=== PATIENT | male | born 1970 | race Two or more races ===

== ENCOUNTER 2016-05-15 11:10 | Emergency (ER) | payer BC, OTHER ==
[~2016-05-15] VITALS: Ht 172.7 cm; Wt 99.8 kg
[2016-05-15 11:45] VITALS: BP 137/83
[2016-05-15] MEDS ORDERED: AMOX1TAB61 PO (12:07)
--- NOTE | 2016-05-15 12:07 | PHYS DOC ---
Past Medical History Past Medical History: Bronchitis, High Cholesterol, Heart Disease, Hypertension Additional Past Medical Histor: internal hemorrhoids, chronic bronchitis Past Surgical History: Angioplasty Additional Past Surgical Histo: 1 Stent. Alcohol Use: Occasionally Drug Use: None Adult General Chief Complaint Chief Complaint: Congestion HPI HPI Patient is a 45 year old female presents emergency department stating that he was 7 some pain and discomfort last night no cyanosis. He states that he normally takes hydrocodone for back pain and discomfort although he has been out of them for 2 weeks. He states that he takes one of his friend's oxycodone for pain and discomfort which really didn't help with his facial pain and discomfort. Patient states that when he woke up this morning he had had some swelling to the left maxillary sinus areas. He states that he is also having some dental pain along the left upper dental area patient denies any fever, chills or any nausea vomiting. Patient states that he has a history of boils in which she's been taken some Keflex for. Patient denies any other symptoms at this time. Review of Systems Review of Systems Constitutional: Denies fever or chills [] Eyes: Denies change in visual acuity, redness, or eye pain [] HENT: Denies nasal congestion or sore throat. C/o left maxillary sinus pressure and swelling Respiratory: Denies cough or shortness of breath [] Cardiovascular: No additional information not addressed in HPI [] GI: Denies abdominal pain, nausea, vomiting, bloody stools or diarrhea [] : Denies dysuria or hematuria [] Musculoskeletal: Denies back pain or joint pain [] Integument: Denies rash or skin lesions [] Neurologic: Denies headache, focal weakness or sensory changes [] Allergies Allergies Allergies Coded Allergies Type Severity Reaction Last Updated Verified No Known Drug Allergies 09/09/13 No Physical Exam Physical Exam Constitutional: Well developed, well nourished, no acute distress, non-toxic appearance. [] HENT: Normocephalic, atraumatic, bilateral external ears normal, oropharynx moist, no oral exudates, nose normal. Bilateral tympanic membranes appear to be normal. Throat without erythematous or exudate. Patient was noted to have left frontal and maxillary sinus tenderness. Patient does have swelling noted over the left maxillary sinuses. Eyes: PERRLA, EOMI, conjunctiva normal, no discharge. [] Neck: Normal range of motion, no tenderness, supple, no stridor. [] Cardiovascular:Heart rate regular rhythm, no murmur [] Lungs & Thorax: Bilateral breath sounds clear to auscultation [] Skin: Warm, dry, no erythema, no rash. [] Back: No tenderness Extremities: No tenderness, no cyanosis, no clubbing, ROM intact, no edema. [] Neurologic: Alert and oriented X 3, normal motor function, normal sensory function, no focal deficits noted. [] Psychologic: Affect normal, judgement normal, mood normal. [] EKG EKG [] Radiology/Procedures Radiology/Procedures [] Course & Med Decision Making Course & Med Decision Making Pertinent Labs and Imaging studies reviewed. (See chart for details) Patient will be placed on Augmentin. Recommended patient to use Sudafed to help with the sinus pressure. Also recommended Mucinex DM to help relieve the congestion. Patient was requesting hydrocodone 8-10 tablets. Explained to patient that sinus infections does not require narcotics. Patient will be discharged home in stable condition with recommendations as above. Since symptoms to return back to emergency department as been provided. Patient agrees with discharge instructions treatment regimens and follow-up recommendations. [] Dragon Disclaimer Dragon Disclaimer This electronic medical record was generated, in whole or in part, using a voice recognition dictation system. Departure Departure Impression: Primary Impression: Sinusitis Disposition: 01 HOME, SELF-CARE Condition: STABLE Referrals: ZULEYMA WILLIAM MD (PCP) Patient Instructions: Sinusitis, [id number] Additional Instructions: Activity as tolerated. Medications as prescribed. You may use Sudafed [id number] to help with sinus pressure. You may also use Mucinex DM [id number] to help relieve the drainage and discharge. Encourage plenty of fluids. Tylenol or ibuprofen may also help with pain and discomfort. Follow-up primary care physician in the next week. Return back to emergency department sign symptoms of become worse. Scripts Amoxicillin/Potassium Clav (Augmentin 875-125 Tablet)1 Each Tablet1 Tab PO BID # 20 TAB Prov:MELANY MIKE NP 05/15/16 MELANY MIKE NP May 15, 2016 12:07
[2016-05-16] MEDS ORDERED: HYDR-971 PO (01:54)
== END 2016-05-15 12:24 | disposition home or self-care (01) ==
LOC: ER 11:10
DX: J32.9 Chronic sinusitis, unspecified (principal); E78.00 Pure hypercholesterolemia, unspecified; I10 Essential (primary) hypertension; Z98.61 Coronary angioplasty status
CPT/HCPCS: 99283

== ENCOUNTER 2016-05-16 00:50 | Emergency (ER) | payer BC ==
[~2016-05-16] VITALS: Ht 172.7 cm; Wt 99.8 kg
[~2016-05-16 00:50] MED LIST: AMOX1TAB61 PO
[2016-05-16 01:00] VITALS: BP 151/94
[2016-05-16] MEDS ORDERED: HYDR-971 PO (01:54)
--- NOTE | 2016-05-16 01:54 | PHYS DOC ---
Past Medical History Past Medical History: Bronchitis, High Cholesterol, Heart Disease, Hypertension , [place] Additional Past Medical Histor: internal hemorrhoids, chronic bronchitis, [place] Past Surgical History: Angioplasty Additional Past Surgical Histo: 1 Stent. Alcohol Use: None Drug Use: None Adult General Chief Complaint Chief Complaint: DENTAL PROBLEM [facility] HPI Patient is a 45 year old male who presents with complaint of left-sided facial pain area patient states that he has had for the past 2 days. Patient states that he was seen earlier today in the emergency department and was diagnosed with a sinusitis. The patient states that he started having worsening pain and swelling along the left side of his face. Patient denies any associated fevers. Patient states that he was prescribed Augmentin at his previous visit and was told to take cough medication and decongestants to help with his symptoms. Patient states that despite treatment his pain has worsened. Patient rates his pain currently is 10 out of 10 states that the long left side of his face. Patient states it radiates towards the back of his head. Patient denies any loss of vision, difficulty with speech or swallowing, or any unilateral deficits. Review of Systems Review of Systems Constitutional: Denies fever or chills [] Eyes: Denies change in visual acuity, redness, or eye pain [] HENT: Facial pain [] Respiratory: Denies cough or shortness of breath [] Cardiovascular: No additional information not addressed in HPI [] GI: Denies abdominal pain, nausea, vomiting, bloody stools or diarrhea [] : Denies dysuria or hematuria [] Musculoskeletal: Denies back pain or joint pain [] Integument: Denies rash or skin lesions [] Neurologic: Denies headache, focal weakness or sensory changes [] Allergies Allergies Allergies Coded Allergies Type Severity Reaction Last Updated Verified No Known Drug Allergies 09/09/13 No Physical Exam Physical Exam Constitutional: Alert, afebrile, appears in moderate to severe discomfort. [] HENT: Normocephalic, atraumatic, bilateral external ears normal, left maxillary sinus tenderness to palpation, oropharynx moist, no gingival erythema or fluctuance, tenderness to palpation over tooth #11, no oral exudates, nose normal. [] Eyes: PERRLA, EOMI, conjunctiva normal, no discharge. [] Neck: Normal range of motion, no tenderness, supple, no stridor. [] Cardiovascular:Heart rate regular rhythm, no murmur [] Lungs & Thorax: Bilateral breath sounds clear to auscultation [] Abdomen: Bowel sounds normal, soft, no tenderness, no masses, no pulsatile masses. [] Skin: Warm, dry, no erythema, no rash. [] Back: No tenderness, no CVA tenderness. [] Extremities: No tenderness, no cyanosis, no clubbing, ROM intact, no edema. [] Neurologic: Alert and oriented X 3, normal motor function, normal sensory function, no focal deficits noted. [] Current Patient Data Vital Signs Vital Signs Date Time Temp Pulse Resp B/P Pulse Ox O2 Delivery O2 Flow Rate FiO2 05/16/16 01:00 98.2 90 20 97 Room Air 98.2 EKG EKG Not performed [] Radiology/Procedures Radiology/Procedures Not performed [] Course & Med Decision Making Course & Med Decision Making Pertinent Labs and Imaging studies reviewed. (See chart for details) The patient is on appropriate medication for treatment of sinusitis, however patient does not appear to be adequately pain controlled at this time. The patient was written for prescription for [place] to help with symptoms. Advised to continue on Augmentin as prescribed at his previous visit. Advised follow-up in 2-3 days a primary doctor and return to the emergency department for any worsening symptoms. Patient voiced understanding and in agreement with treatment plan. Dragon Disclaimer Dragon Disclaimer This electronic medical record was generated, in whole or in part, using a voice recognition dictation system. Departure Departure Impression: Primary Impression: Sinusitis Disposition: 01 HOME, SELF-CARE Condition: STABLE Referrals: ZULEYMA WILLIAM MD (PCP) Patient Instructions: Sinusitis Additional Instructions: Continue on the antibiotic that was prescribed to you for your sinus infection. Follow-up with your primary doctor in 2 days. Return to the emergency department for any worsening symptoms. Scripts Hydrocodone/Apap 5-325 ([place] 5-325 Tablet)1 Each Tablet1-2 Tab PO Q4-6HRS PRN PAIN #20 TAB Prov:JULIET ALEMAN MD 05/16/16 Problem Qualifiers Primary Impression: Sinusitis Sinusitis location: maxillary Chronicity: acute Recurrence: not specified as recurrent Qualified Code: J01.00 - Acute maxillary sinusitis, unspecified JULIET ALEMAN MD May 16, 2016 01:54
== END 2016-05-16 02:10 | disposition home or self-care (01) ==
LOC: ER 00:50
DX: J32.9 Chronic sinusitis, unspecified (principal); J42 Unspecified chronic bronchitis; I11.9 Hypertensive heart disease without heart failure; E78.00 Pure hypercholesterolemia, unspecified; I25.2 Old myocardial infarction; Z95.5 Presence of coronary angioplasty implant and graft
CPT/HCPCS: 99283

== ENCOUNTER 2016-10-27 07:26 | Emergency (ER) | payer BC ==
[~2016-10-27] VITALS: Ht 174 cm; Wt 104.3 kg
[~2016-10-27 07:26] MED LIST changes: +HYDR-971 PO
[2016-10-27] MEDS ORDERED: PIPERACILLIN/TAZOBACTAM 3.375 GM in IV NORMAL SALINE 50ML 50 ML IV ONE (07:45)
[2016-10-27] MEDS ORDERED: MORPHINE SULFATE 10 MG/ML VIAL. IV ONE (07:45)
[2016-10-27] MEDS ORDERED: ASPIRIN ENTERIC COATED 325 MG TABLET.DR. PO ONE (07:45)
[2016-10-27 07:55] LABS: BASO # 0.1 x10^3/uL (0.0-0.2); BASO % 1 % (0-3); EOS % 3 % (0-3); HEMATOCRIT 46.8 % (39.0-53.0); HEMOGLOBIN 15.8 g/dL (13.0-17.5); LYMPH # 2.6 x10^3/uL (1.0-4.8); LYMPH % 29 % (24-48); MEAN CORPUSCULAR HEMOGLOBIN 31 pg (25-35); MEAN CORPUSCULAR HGB CONC 34 g/dL (31-37); MEAN CORPUSCULAR VOLUME 91 fL (79-100); MONO % 9 % (0-9); NEUT % 59 % (31-73); PLATELET COUNT 246 x10^3/uL (140-400); RED BLOOD COUNT 5.13 x10^6/uL (4.30-5.70); RED CELL DISTRIBUTION WIDTH 13.7 % (11.5-14.5)
--- NOTE | 2016-10-27 07:58 | EKG ---
[facility] [address] [place] [address] Test Date: 2016-10-27 Test Time: 07:34:54 Pat Name: JIN guerrero Department: Room: Gender: M Stock Taker: : 1970 Requested By: HUY JONES Order Number: [id number] Reading MD: Ricardo Dolan Measurements Intervals [place] Rate: 80 P: 29 HI: 182 QRS: 62 QRSD: 96 T: 41 QT: 368 QTc: 428 Interpretive Statements SINUS RHYTHM NORMAL ECG RI6.01 Unconfirmed report Compared to ECG 07/24/2013 10:39:06 No significant changes Electronically Signed On 10-27-2016 16:51:41 CDT by Ricardo Dolan
--- NOTE | 2016-10-27 08:13 | RAD ---
Portable chest, 10/27/2016: History: Chest pain Comparison is made to a study from 07/24/2013. The heart size and pulmonary vascularity are normal. The lungs are clear. There is no evidence of pleural fluid. IMPRESSION: No acute cardiopulmonary abnormality is detected.
--- NOTE | 2016-10-27 08:30 | PHYS DOC ---
Past Medical History Past Medical History: Bronchitis, High Cholesterol, Heart Disease, Hypertension , [place] Additional Past Medical Histor: internal hemorrhoids, chronic bronchitis, [place] Past Surgical History: Angioplasty Additional Past Surgical Histo: 1 Stent. Alcohol Use: None Drug Use: None Adult General Chief Complaint Chief Complaint: DENTAL PROBLEM HPI HPI Patient is a 46 year old male presenting to the emergency department for dental pain. As she was checking and he says that he has severe left-sided chest pain that is sharp with no radiation but makes him short of breath and nauseated. Patient says that he had a stent placed in 2009 and had a heart catheter 2 years ago with no abnormality. Patient denies any fevers chills facial swelling but says that he has had range from his teeth. He said that he is unwilling to see a dentist as they wanted to discharge him thousands of dollars to pull his teeth. Review of Systems Review of Systems Constitutional: Denies fever or chills [] Eyes: Denies change in visual acuity, redness, or eye pain [] HENT: Denies nasal congestion or sore throat [] Respiratory: Denies cough. + shortness of breath [] Cardiovascular: + CP GI: Denies abdominal pain, nausea, vomiting, bloody stools or diarrhea [] : Denies dysuria or hematuria [] Musculoskeletal: Denies back pain or joint pain [] Integument: Denies rash or skin lesions [] Neurologic: Denies headache, focal weakness or sensory changes [] Current Medications Current Medications Current Medications Medications (Trade) Dose Ordered Sig/Sav Start Time Stop Time Status Last Admin Dose Admin Aspirin (Ecotrin) 325 mg 1X ONCE 10/27/16 07:45 10/27/16 07:55 DC 10/27/16 08:14 325 MG Ketorolac Tromethamine (Toradol) 30 mg 1X ONCE 10/27/16 09:45 10/27/16 09:46 DC 10/27/16 09:56 30 MG Morphine Sulfate 5 mg 1X ONCE 10/27/16 07:45 10/27/16 07:55 DC 10/27/16 08:15 5 MG Oxycodone/ Acetaminophen (Percocet 5/325) 2 tab 1X ONCE 10/27/16 09:45 10/27/16 09:46 DC 10/27/16 09:55 2 TAB Piperacillin Sod/ Tazobactam Sod 3.375 gm/Sodium Chloride 50 ml @ 100 mls/hr 1X ONCE 10/27/16 07:45 10/27/16 08:14 DC 10/27/16 08:13 100 MLS/HR Allergies Allergies Allergies Coded Allergies Type Severity Reaction Last Updated Verified No Known Drug Allergies 10/27/16 No Physical Exam Physical Exam Constitutional: Well developed, well nourished, no acute distress, non-toxic appearance. [] HENT: Generalized poor dentition with erythema to his left upper gums but there is no periapical abscess or obvious swelling. Eyes: PERRLA, EOMI, conjunctiva normal, no discharge. [] Neck: Normal range of motion, no tenderness, supple, no stridor. [] Cardiovascular:Heart rate regular rhythm, no murmur [] Lungs & Thorax: Bilateral breath sounds clear to auscultation [] Abdomen: Bowel sounds normal, soft, no tenderness, no masses, no pulsatile masses. [] Skin: Warm, dry, no erythema, no rash. [] Back: No tenderness, no CVA tenderness. [] Extremities: No tenderness, no cyanosis, no clubbing, ROM intact, no edema. [] Neurologic: Alert and oriented X 3, normal motor function, normal sensory function, no focal deficits noted. [] Current Patient Data Vital Signs Vital Signs Date Time Temp Pulse Resp B/P (MAP) Pulse Ox O2 Delivery O2 Flow Rate FiO2 10/27/16 09:55 20 98 Room Air 10/27/16 09:53 72 146/86 (106) 10/27/16 07:35 98.6 98.6 Lab Values Laboratory Tests Test 10/27/16 07:45 10/27/16 08:28 White Blood Count 9.0 x10^3/uL (4.0-11.0) Red Blood Count 5.13 x10^6/uL (4.30-5.70) Hemoglobin 15.8 g/dL (13.0-17.5) Hematocrit 46.8 % (39.0-53.0) Mean Corpuscular Volume 91 fL (79-100) Mean Corpuscular Hemoglobin 31 pg (25-35) Mean Corpuscular Hemoglobin Concent 34 g/dL (31-37) Red Cell Distribution Width 13.7 % (11.5-14.5) Platelet Count 246 x10^3/uL (140-400) Neutrophils (%) (Auto) 59 % (31-73) Lymphocytes (%) (Auto) 29 % (24-48) Monocytes (%) (Auto) 9 % (0-9) Eosinophils (%) (Auto) 3 % (0-3) Basophils (%) (Auto) 1 % (0-3) Neutrophils # (Auto) 5.3 x10^3uL (1.8-7.7) Lymphocytes # (Auto) 2.6 x10^3/uL (1.0-4.8) Monocytes # (Auto) 0.8 x10^3/uL (0.0-1.1) Eosinophils # (Auto) 0.3 x10^3/uL (0.0-0.7) Basophils # (Auto) 0.1 x10^3/uL (0.0-0.2) Prothrombin Time 12.6 SEC (11.7-14.0) Prothrombin Time INR 1.0 (0.8-1.1) PTT 29 SEC (24-38) Troponin I Quantitative < 0.017 ng/mL (0.000-0.055) Sodium Level 142 mmol/L (136-145) Potassium Level 3.7 mmol/L (3.5-5.1) Chloride Level 105 mmol/L (98-107) Carbon Dioxide Level 24 mmol/L (21-32) Anion Gap 13 (6-14) Blood Urea Nitrogen 8 mg/dL (8-26) Creatinine 0.9 mg/dL (0.7-1.3) Estimated GFR (Cockcroft-Gault) 90.8 BUN/Creatinine Ratio 9 (6-20) Glucose Level 111 mg/dL (70-99) H Calcium Level 8.7 mg/dL (8.5-10.1) Magnesium Level 2.3 mg/dL (1.8-2.4) Total Bilirubin 0.4 mg/dL (0.2-1.0) Aspartate Amino Transferase (AST) 28 U/L (15-37) Alanine Aminotransferase (ALT) 49 U/L (16-63) Alkaline Phosphatase 86 U/L (46-116) LP-Pku-R-Type Natriuretic Peptide 101 pg/mL (0-124) Total Protein 7.4 g/dL (6.4-8.2) Albumin 3.9 g/dL (3.4-5.0) Albumin/Globulin Ratio 1.1 (1.0-1.7) Lipase 159 U/L (73-393) Laboratory Tests 10/27/16 07:45 Laboratory Tests 10/27/16 08:28 EKG EKG Normal sinus rhythm at 80 bpm with normal axis no obvious ST elevation or depression and normal T waves. Radiology/Procedures Radiology/Procedures Portable chest, 10/27/2016: History: Chest pain Comparison is made to a study from 07/24/2013. The heart size and pulmonary vascularity are normal. The lungs are clear. There is no evidence of pleural fluid. IMPRESSION: No acute cardiopulmonary abnormality is detected. DICTATED and SIGNED BY: WILI QUIJANO MD DATE: 10/27/16809 Course & Med Decision Making Course & Med Decision Making Patient has chest pain that has some typical features and he appeared somewhat ill. HEENT troponin are okay but given his history I strongly recommended admission for further evaluation and treatment. Patient refused admission stating that he needed to go to work today. I told him that I was concerned he may be having a heart attack and he could from this. Shouldn't verbalized understanding and accepted the risks of and disability by leaving against my advice. For his dental pain I strongly advised he needs to see a dentist or oral surgeon as soon as possible as antibiotics and pain medicines will not fix this he has a mechanical issue where he needs to have his teeth pulled. Patient aware and agreeable with plan for discharge and verbalized understanding of the need for short-term follow-up in the strict ER return precautions discussed including worsening pain fevers vomiting or other general concerns. Dragon Disclaimer Dragon Disclaimer This electronic medical record was generated, in whole or in part, using a voice recognition dictation system. Departure Departure Impression: Primary Impression: Chest pain Additional Impression: Infected dental caries Disposition: 01 HOME, SELF-CARE Condition: STABLE Referrals: ZULEYMA WILLIAM MD (PCP) Patient Instructions: Dental Pain Additional Instructions: TAKE 400MG OF IBUPROFEN EVERY 6 HOURS AND THE NORCO FOR BREAKTHROUGH PAIN. FOLLOW WITH THE ORAL SURGEON AND/OR DENTIST [facility]. Scripts Amoxicillin (AMOXICILLIN) 875 Mg Tablet 1 TAB PO BID, #14 TAB Prov: HUY JONES DO 10/27/16 Hydrocodone/Apap 5-325 (NORCO 5-325 TABLET) 1 Each Tablet 1 TAB PO PRN Q6HRS Y for PAIN, #14 TAB 0 Refills Prov: HUY JONES DO 10/27/16 Problem Qualifiers Primary Impression: Chest pain Chest pain type: unspecified Qualified Codes: R07.9 - Chest pain, unspecified HUY JONES DO Oct 27, 2016 08:30
[2016-10-27 08:37] LABS: PROTHROMBIN TIME PATIENT 12.6 SEC (11.7-14.0)
[2016-10-27 08:41] LABS: CALCIUM 8.7 mg/dL (8.5-10.1); CREATININE 0.9 mg/dL (0.7-1.3); GFR 90.8; POTASSIUM 3.7 mmol/L (3.5-5.1)
[2016-10-27 08:47] LABS: ALBUMIN 3.9 g/dL (3.4-5.0); ALBUMIN/GLOBULIN RATIO 1.1 (1.0-1.7); MAGNESIUM 2.3 mg/dL (1.8-2.4); TOTAL BILIRUBIN 0.4 mg/dL (0.2-1.0); TOTAL PROTEIN 7.4 g/dL (6.4-8.2)
[2016-10-27] MEDS ORDERED: AMOX875T PO (09:41)
[2016-10-27] MEDS ORDERED: HYDR-971 PO (09:41)
[2016-10-27] MEDS ORDERED: oxyCODONE/APAP 5/325 1 TAB TABLET PO ONE (09:45)
[2016-10-27] MEDS ORDERED: KETOROLAC TROMETHAMINE 30 MG/ML INJ. IV ONE (09:45)
[2016-10-27 09:53] VITALS: BP 146/86
== END 2016-10-27 10:03 | disposition home or self-care (01) ==
LOC: ER 07:26
DX: R07.89 Other chest pain (principal); K04.7 Periapical abscess without sinus; K02.9 Dental caries, unspecified; E78.00 Pure hypercholesterolemia, unspecified; I11.9 Hypertensive heart disease without heart failure; I25.2 Old myocardial infarction; Z95.5 Presence of coronary angioplasty implant and graft
CPT/HCPCS: 36415; 71010; 80053; 83690; 83735; 83880; 84484; 85027; 85610; 85730; 93005; 96365; 96375; 99285; J1885; J2270; J2543

== ENCOUNTER 2016-11-29 08:50 | Emergency (ER) | payer BC ==
[~2016-11-29] VITALS: Ht 172.7 cm; Wt 106.6 kg
[~2016-11-29 08:50] MED LIST changes: +AMOX875T PO
--- NOTE | 2016-11-29 09:24 | PHYS DOC ---
Past Medical History Past Medical History: Bronchitis, High Cholesterol, Heart Disease, Hypertension , [place] Additional Past Medical Histor: internal hemorrhoids, chronic bronchitis, [place] Past Surgical History: Angioplasty Additional Past Surgical Histo: 1 Stent. Alcohol Use: None Drug Use: None Adult General Chief Complaint Chief Complaint: NAUSEA/VOMITING/DIARRHA HPI HPI Patient is a 46 year old M who presents with abdominal pain. Patient states he' s had abdominal pain for the past 3 days and took his friend's hydrocodone last night however he found out this morning it was pseudoephedrine instead. Patient had nausea and vomiting with no diarrhea. Patient denies any fevers. Patient states his belly is distended and tender all over. Patient been unable to eat. Patient denies any abdominal surgeries. Patient has no other complaints. Review of Systems Review of Systems GEN: Denies fevers, chills, sweats HEENT: Denies blurred vision, sore throat CV: Denies chest pain RESP: Denies shortness of air, cough GI: n/v with generalized abdominal pain NEURO: Denies confusion, dizziness MSK: Denies weakness, joint pain/swelling Current Medications Current Medications Current Medications Medications (Trade) Dose Ordered Sig/Sav Start Time Stop Time Status Last Admin Dose Admin Fentanyl Citrate (Fentanyl 2ml Vial) 50 mcg 1X ONCE 11/29/16 11:30 11/29/16 11:31 DC 11/29/16 11:10 50 MCG Iohexol (Omnipaque 300 Mg/ml) 75 ml STK-MED ONCE 11/29/16 09:53 11/29/16 09:54 DC Metoclopramide HCl (Reglan) 10 mg 1X ONCE 11/29/16 10:30 11/29/16 10:31 DC 11/29/16 10:33 10 MG Ondansetron HCl (Zofran) 4 mg 1X ONCE 11/29/16 09:30 11/29/16 09:31 DC 11/29/16 09:51 4 MG Sodium Chloride 1,000 ml @ 1,000 mls/hr 1X ONCE 11/29/16 09:30 11/29/16 10:29 DC 11/29/16 09:50 1,000 MLS/HR Allergies Allergies Allergies Coded Allergies Type Severity Reaction Last Updated Verified No Known Drug Allergies 10/27/16 No Physical Exam Physical Exam GEN.: No apparent distress. Alert and oriented. HEENT: Head is normocephalic, atraumatic NECK: Supple. LUNGS: CTAB. HEART: RRR, S1, S2 present. Peripheral pulses intact ABDOMEN: Soft, generalized abdominal tenderness, distended with rebound tenderness. Hypoactive bowel sounds. EXTREMITIES: Without any cyanosis. NEUROLOGIC: Normal speech, normal tone PSYCHIATRIC: Normal affect, normal mood. SKIN: No ulcerations Current Patient Data Vital Signs Vital Signs Date Time Temp Pulse Resp B/P (MAP) Pulse Ox O2 Delivery O2 Flow Rate FiO2 11/29/16 13:25 68 19 116/58 (77) 98 Room Air 11/29/16 09:05 98.4 98.4 Lab Values Laboratory Tests Test 11/29/16 09:15 White Blood Count 12.1 x10^3/uL (4.0-11.0) H Red Blood Count 5.74 x10^6/uL (4.30-5.70) H Hemoglobin 17.6 g/dL (13.0-17.5) H Hematocrit 52.2 % (39.0-53.0) Mean Corpuscular Volume 91 fL (79-100) Mean Corpuscular Hemoglobin 31 pg (25-35) Mean Corpuscular Hemoglobin Concent 34 g/dL (31-37) Red Cell Distribution Width 13.7 % (11.5-14.5) Platelet Count 323 x10^3/uL (140-400) Neutrophils (%) (Auto) 72 % (31-73) Lymphocytes (%) (Auto) 17 % (24-48) L Monocytes (%) (Auto) 8 % (0-9) Eosinophils (%) (Auto) 2 % (0-3) Basophils (%) (Auto) 1 % (0-3) Neutrophils # (Auto) 8.8 x10^3uL (1.8-7.7) H Lymphocytes # (Auto) 2.1 x10^3/uL (1.0-4.8) Monocytes # (Auto) 1.0 x10^3/uL (0.0-1.1) Eosinophils # (Auto) 0.2 x10^3/uL (0.0-0.7) Basophils # (Auto) 0.1 x10^3/uL (0.0-0.2) Sodium Level 140 mmol/L (136-145) Potassium Level 3.6 mmol/L (3.5-5.1) Chloride Level 100 mmol/L (98-107) Carbon Dioxide Level 25 mmol/L (21-32) Anion Gap 15 (6-14) H Blood Urea Nitrogen 11 mg/dL (8-26) Creatinine 1.1 mg/dL (0.7-1.3) Estimated GFR (Cockcroft-Gault) 72.1 BUN/Creatinine Ratio 10 (6-20) Glucose Level 118 mg/dL (70-99) H Lactic Acid Level 1.5 mmol/L (0.4-2.0) Calcium Level 11.1 mg/dL (8.5-10.1) H Total Bilirubin 0.7 mg/dL (0.2-1.0) Aspartate Amino Transferase (AST) 27 U/L (15-37) Alanine Aminotransferase (ALT) 50 U/L (16-63) Alkaline Phosphatase 97 U/L (46-116) Total Protein 8.7 g/dL (6.4-8.2) H Albumin 4.6 g/dL (3.4-5.0) Albumin/Globulin Ratio 1.1 (1.0-1.7) Lipase 214 U/L (73-393) Ethyl Alcohol Level < 10 mg/dL (0-10) Laboratory Tests 11/29/16 09:15 Laboratory Tests 11/29/16 09:15 EKG EKG 0912: EKG shows sinus tach rate of 121 no STEMI[] Radiology/Procedures Radiology/Procedures CT scan of the abdomen and pelvis NAD[] Course & Med Decision Making Course & Med Decision Making Pertinent Labs and Imaging studies reviewed. (See chart for details) ED course: Patient was seen and examined emergency room CBC, CMP, lipase, UA, CT scan abdomen pelvis with contrast were ordered along with 1 L normal saline 50 g of fentanyl 1307: Patient was reevaluated and updated on lab work and CT findings. Patient states his pain is improved patient was comfortable being discharged home. MDM: After reviewing the chart, CC/HPI/PMH, physical exam, [lab results], [ radiological results], I do not believe the patient has a intra-abdominal emergency warranting further workup and/or admission at this time. I believe the patient is stable for discharge. Additional verbal discharge instructions were provided to the patient and that if symptoms get worse or any new symptoms arise that are worrisome to the patient he is to return to the emergency room immediately [] Dragon Disclaimer Dragon Disclaimer This electronic medical record was generated, in whole or in part, using a voice recognition dictation system. Departure Departure Impression: Primary Impression: Abdominal pain Disposition: 01 HOME, SELF-CARE Condition: IMPROVED Referrals: ZULEYMA WILLIAM MD (PCP) Patient Instructions: Abdominal Pain (Nonspecific) Additional Instructions: Please follow up with your family physician in the next one to 2 days SHAZIA FRANCE DO Nov 29, 2016 09:24
[2016-11-29] MEDS ORDERED: IV NORMAL SALINE 1000ML BAG 1,000 ML IV ONE (09:30)
[2016-11-29] MEDS ORDERED: ONDANSETRON PF 4 MG/2 ML VIAL. IV ONE (09:30)
[2016-11-29] MEDS ORDERED: fentaNYL PF VIAL 100 MCG/2 ML VIAL IV ONE ×2 (09:30→11:30)
[2016-11-29 09:31] LABS: BASO # 0.1 x10^3/uL (0.0-0.2); BASO % 1 % (0-3); EOS % 2 % (0-3); HEMATOCRIT 52.2 % (39.0-53.0); HEMOGLOBIN 17.6 g/dL (13.0-17.5); LYMPH # 2.1 x10^3/uL (1.0-4.8); LYMPH % 17 % (24-48); MEAN CORPUSCULAR HEMOGLOBIN 31 pg (25-35); MEAN CORPUSCULAR HGB CONC 34 g/dL (31-37); MEAN CORPUSCULAR VOLUME 91 fL (79-100); MONO % 8 % (0-9); NEUT % 72 % (31-73); PLATELET COUNT 323 x10^3/uL (140-400); RED BLOOD COUNT 5.74 x10^6/uL (4.30-5.70); RED CELL DISTRIBUTION WIDTH 13.7 % (11.5-14.5); WHITE BLOOD COUNT 12.1 x10^3/uL (4.0-11.0)
[2016-11-29 09:37] LABS: CALCIUM 11.1 mg/dL (8.5-10.1); CREATININE 1.1 mg/dL (0.7-1.3); GFR 72.1; POTASSIUM 3.6 mmol/L (3.5-5.1)
[2016-11-29 09:43] LABS: ALBUMIN 4.6 g/dL (3.4-5.0); ALBUMIN/GLOBULIN RATIO 1.1 (1.0-1.7); TOTAL BILIRUBIN 0.7 mg/dL (0.2-1.0); TOTAL PROTEIN 8.7 g/dL (6.4-8.2)
[2016-11-29] MEDS ORDERED: IOHEXOL 300 MG/ML 75 ML VIAL ONE (09:53)
[2016-11-29] MEDS ORDERED: IOHEXOL 300 MG/ML 75 ML VIAL IV ONE (10:00)
[2016-11-29] MEDS ORDERED: METOCLOPRAMIDE HCL 10 MG/2 ML VIAL. IV ONE (10:30)
--- NOTE | 2016-11-29 12:56 | RAD ---
Indication abdominal pain vomiting and fever. Axial images of the abdomen and pelvis were obtained. Approximately 75 cc of Omnipaque 300 was administered intravenously. No oral contrast was administered. Note is made of a previous examination 09/09/2013. The lung bases are clear. The liver and spleen appear unremarkable. There is a focus of hypervascularity in the right lobe of the liver. This probably reflects a small flash hemangioma. It is unchanged relative to the previous exam. The gallbladder appears grossly normal. No pancreatic pathology is seen. The adrenal glands and kidneys appear unremarkable. No mass inflammatory process or acute finding in the abdomen is seen. In the pelvis no acute finding is seen. The appendix is seen in the right lower quadrant and appears unremarkable. IMPRESSION: No acute finding seen in the abdomen or pelvis
[2016-11-29 13:25] VITALS: BP 116/58
--- NOTE | 2016-11-29 13:45 | EKG ---
[address] [place] [address] Test Date: 2016-11-29 Test Time: 09:08:08 Pat Name: JIN VASQUEZ Department: Room: Gender: M Wellness Nurse Rn: : 1970 Requested By: SHAZIA FRANCE Order Number: [id number] Reading MD: Fany Walker Measurements Intervals [place] Rate: 121 P: 44 [place]: 168 QRS: 85 QRSD: 96 T: 30 QT: 310 QTc: 443 Interpretive Statements SINUS TACHYCARDIA OTHERWISE NORMAL EKG Electronically Signed On 12-02-2016 9:35:30 CDT by Fany Walker
== END 2016-11-29 13:31 | disposition home or self-care (01) ==
LOC: ER 08:50
DX: R10.84 Generalized abdominal pain (principal); R11.2 Nausea with vomiting, unspecified; E78.00 Pure hypercholesterolemia, unspecified; I11.9 Hypertensive heart disease without heart failure; I25.2 Old myocardial infarction; Z95.5 Presence of coronary angioplasty implant and graft
CPT/HCPCS: 36415; 74177; 80053; 83605; 83690; 85025; 93005; 96361; 96374; 96375; 99285; G0480; J2405; J2765; J3010; J7030; Q9967

== ENCOUNTER 2017-10-07 14:37 | Emergency (ER) | payer SELFPAY, BC ==
[2017-10-07] MEDS: DEXAMETHASONE 4 MG TABLET PO (17:02)
[2017-10-08 07:05] LABS: NEGATIVE OBC STREP NEG; POSITIVE OBC STREP POS
== END 2017-10-07 17:51 | disposition home or self-care (01) ==
LOC: ER 14:37
DX: K11.20 Sialoadenitis, unspecified (principal); I11.9 Hypertensive heart disease without heart failure; E78.00 Pure hypercholesterolemia, unspecified; I25.2 Old myocardial infarction
CPT/HCPCS: 87880; 99283; J8540

== ENCOUNTER 2018-12-05 22:43 | Emergency (ER) | payer SELFPAY ==
[~2018-12-05] VITALS: Ht 172.7 cm; Wt 91.6 kg
[~2018-12-05 22:43] MED LIST changes: +CLIN150C14 PO; +HYDR-3164 PO; -HYDR-971 PO; +PRED50TA PO
[2018-12-05 22:45] VITALS: BP 166/99
[2018-12-05] MEDS ORDERED: CLOT15CR4 TP (23:33)
--- NOTE | 2018-12-05 23:33 | PHYS DOC ---
Past Medical History Past Medical History: Bronchitis, High Cholesterol, Heart Disease, Hypert ension, [place] Additional Past Medical Histor: internal hemorrhoids, chronic bronchitis, [place] Past Surgical History: Angioplasty Additional Past Surgical Histo: 1 Stent. Alcohol Use: None Drug Use: None Adult General Chief Complaint Chief Complaint: INSECT BITE HPI HPI Patient is a 48 year old [f__sex] who presents with [] Review of Systems Review of Systems Constitutional: Denies fever or chills [] Eyes: Denies change in visual acuity, redness, or eye pain [] HENT: Denies nasal congestion or sore throat [] Respiratory: Denies cough or shortness of breath [] Cardiovascular: No additional information not addressed in HPI [] GI: Denies abdominal pain, nausea, vomiting, bloody stools or diarrhea [] : Denies dysuria or hematuria [] Musculoskeletal: Denies back pain or joint pain [] Integument: Denies rash or skin lesions [] Neurologic: Denies headache, focal weakness or sensory changes [] Endocrine: Denies polyuria or polydipsia [] All other systems were reviewed and found to be within normal limits, except as documented in this note. Allergies Allergies Allergies Coded Allergies Type Severity Reaction Last Updated Verified No Known Drug Allergies 10/27/16 No Physical Exam Physical Exam Constitutional: Well developed, well nourished, no acute distress, non-toxic appearance. [] HENT: Normocephalic, atraumatic, bilateral external ears normal, oropharynx moist, no oral exudates, nose normal. [] Eyes: PERRLA, EOMI, conjunctiva normal, no discharge. [] Neck: Normal range of motion, no tenderness, supple, no stridor. [] Cardiovascular:Heart rate regular rhythm, no murmur [] Lungs & Thorax: Bilateral breath sounds clear to auscultation [] Abdomen: Bowel sounds normal, soft, no tenderness, no masses, no pulsatile masses. [] Skin: Warm, dry, no erythema, no rash. [] Back: No tenderness, no CVA tenderness. [] Extremities: No tenderness, no cyanosis, no clubbing, ROM intact, no edema. [] Neurologic: Alert and oriented X 3, normal motor function, normal sensory function, no focal deficits noted. [] Psychologic: Affect normal, judgement normal, mood normal. [] Current Patient Data Vital Signs Vital Signs Date Time Temp Pulse Resp B/P (MAP) Pulse Ox O2 Delivery O2 Flow Rate FiO2 12/05/18 22:45 98.7 78 16 166/99 (121) 99 Room Air 98.7 EKG EKG [] Radiology/Procedures Radiology/Procedures [] Course & Med Decision Making Course & Med Decision Making Pertinent Labs and Imaging studies reviewed. (See chart for details) [] Dragon Disclaimer Dragon Disclaimer This electronic medical record was generated, in whole or in part, using a voice recognition dictation system. Departure Departure Impression: Primary Impression: Brain Disposition: HOME, SELF-CARE Condition: STABLE Referrals: NO PCP (PCP) Patient Instructions: Brain Additional Instructions: Fill the prescription and use as directed. Follow up with your doctor if symptoms persist, return to the ER if symptoms worsen. Scripts Clotrimazole (CLOTRIMAZOLE) 15 Gm Cream..g. 1 LIDIA TP BID for 7 Days, #30 GM 0 Refills 1% Prov: BROOKLYN SNYDER APRN 12/05/18 BROOKLYN SNYDER APRN Dec 05, 2018 23:33
[2018-12-08 22:07] LABS: HERPES SIMPLEX TYPE 1 Negative (Negative); HERPES SIMPLEX TYPE 2 Negative (Negative)
== END 2018-12-05 23:37 | disposition home or self-care (01) ==
LOC: ER 22:43
DX: N48.1 Balanitis (principal); I11.9 Hypertensive heart disease without heart failure; E78.00 Pure hypercholesterolemia, unspecified; I25.2 Old myocardial infarction; Z95.5 Presence of coronary angioplasty implant and graft; W57.XXXA Bitten or stung by nonvenomous insect and other nonvenomous arthropods, initial encounter; Y93.89 Activity, other specified; Y92.89 Other specified places as the place of occurrence of the external cause; Y99.8 Other external cause status
CPT/HCPCS: 36415; 87529; 99283

== ENCOUNTER 2019-01-16 02:03 | Emergency (ER) | payer SELFPAY ==
[~2019-01-16] VITALS: Ht 172.7 cm; Wt 99.8 kg
[~2019-01-16 02:03] MED LIST changes: +CLOT15CR4 TP
[2019-01-16 02:05] VITALS: BP 172/107
[2019-01-16] MEDS ORDERED: HYDR-3164 PO (02:36)
[2019-01-16] MEDS ORDERED: PENI500T PO (02:36)
--- NOTE | 2019-01-16 02:36 | PHYS DOC ---
Past Medical History Past Medical History: Bronchitis, High Cholesterol, Heart Disease, Hypert ension, [place] Additional Past Medical Histor: internal hemorrhoids, chronic bronchitis, [place] Past Surgical History: Angioplasty Additional Past Surgical Histo: 1 Stent. Alcohol Use: None Drug Use: None Adult General Chief Complaint Chief Complaint: DENTAL PROBLEM HPI HPI Patient is a 48 year old [f__sex] who presents with [] Review of Systems Review of Systems Constitutional: Denies fever or chills [] Eyes: Denies change in visual acuity, redness, or eye pain [] HENT: Denies nasal congestion or sore throat [] Respiratory: Denies cough or shortness of breath [] Cardiovascular: No additional information not addressed in HPI [] GI: Denies abdominal pain, nausea, vomiting, bloody stools or diarrhea [] : Denies dysuria or hematuria [] Musculoskeletal: Denies back pain or joint pain [] Integument: Denies rash or skin lesions [] Neurologic: Denies headache, focal weakness or sensory changes [] Endocrine: Denies polyuria or polydipsia [] All other systems were reviewed and found to be within normal limits, except as documented in this note. Current Medications Current Medications Current Medications Medications (Trade) Dose Ordered Sig/Sav Start Time Stop Time Status Last Admin Dose Admin Ketorolac Tromethamine (Toradol Im) 60 mg 1X ONCE 01/16/19 03:00 01/16/19 03:01 Penicillin V Potassium (Veetid) 500 mg 1X ONCE 01/16/19 03:00 01/16/19 03:01 Allergies Allergies Allergies Coded Allergies Type Severity Reaction Last Updated Verified No Known Drug Allergies 10/27/16 No Physical Exam Physical Exam Constitutional: Well developed, well nourished, no acute distress, non-toxic appearance. [] HENT: Normocephalic, atraumatic, bilateral external ears normal, oropharynx moist, no oral exudates, nose normal. [] Eyes: PERRLA, EOMI, conjunctiva normal, no discharge. [] Neck: Normal range of motion, no tenderness, supple, no stridor. [] Cardiovascular:Heart rate regular rhythm, no murmur [] Lungs & Thorax: Bilateral breath sounds clear to auscultation [] Abdomen: Bowel sounds normal, soft, no tenderness, no masses, no pulsatile masses. [] Skin: Warm, dry, no erythema, no rash. [] Back: No tenderness, no CVA tenderness. [] Extremities: No tenderness, no cyanosis, no clubbing, ROM intact, no edema. [] Neurologic: Alert and oriented X 3, normal motor function, normal sensory function, no focal deficits noted. [] Psychologic: Affect normal, judgement normal, mood normal. [] Current Patient Data Vital Signs Vital Signs Date Time Temp Pulse Resp B/P (MAP) Pulse Ox O2 Delivery O2 Flow Rate FiO2 01/16/19 02:05 98.4 74 20 172/107 (128) 98 Room Air 98.4 EKG EKG [] Radiology/Procedures Radiology/Procedures [] Course & Med Decision Making Course & Med Decision Making Pertinent Labs and Imaging studies reviewed. (See chart for details) [] Dragon Disclaimer Dragon Disclaimer This electronic medical record was generated, in whole or in part, using a voice recognition dictation system. Departure Departure Impression: Primary Impression: Dental caries Disposition: HOME, SELF-CARE Condition: STABLE Referrals: NO PCP (PCP) Patient Instructions: Dental Caries Additional Instructions: Patient is instructed to follow up with PCP in one to 2 days. Appropriate discharge instructions given to patient to return to the ED or to seek immediate medical evaluation. Scripts Hydrocodone/Apap 5-325 (NORCO 5-325 TABLET) 1 Each Tablet 1 TAB PO TID, #15 TAB Prov: HECOTR TREJO DO 01/16/19 Penicillin V Potassium (PENICILLIN V POTASSIUM) 500 Mg Tablet 500 MG PO QID for 10 Days, #40 TAB 0 Refills Prov: HECTOR TREJO DO 01/16/19 HECTOR TREJO DO Jan 16, 2019 02:36
[2019-01-16] MEDS ORDERED: PENICILLIN V K 250 MG TABLET. PO ONE (03:00)
[2019-01-16] MEDS ORDERED: KETOROLAC 60 MG/2 ML VIAL. IM ONE (03:00)
== END 2019-01-16 02:50 | disposition home or self-care (01) ==
LOC: ER 02:03
DX: K02.9 Dental caries, unspecified (principal); E78.00 Pure hypercholesterolemia, unspecified; I11.9 Hypertensive heart disease without heart failure; I25.2 Old myocardial infarction; Z95.1 Presence of aortocoronary bypass graft; Z95.5 Presence of coronary angioplasty implant and graft
CPT/HCPCS: 96372; 99283; J1885

== ENCOUNTER 2019-04-26 11:22 | Emergency (ER) | payer SELFPAY ==
[~2019-04-26] VITALS: Ht 172.7 cm; Wt 90.9 kg
[~2019-04-26 11:22] MED LIST changes: +PENI500T PO
--- NOTE | 2019-04-26 12:00 | RAD ---
EXAM: Head CT without contrast. HISTORY: Headache. TECHNIQUE: Computed tomographic images of the head were obtained without contrast. *One or more of the following individualized dose reduction techniques were utilized for this examination: 1. Automated exposure control. 2. Adjustment of the mA and/or kV according to patient size. 3. Use of iterative reconstruction technique. COMPARISON: None. FINDINGS: There is no acute or subacute extra-axial or intraparenchymal hemorrhage. There is no mass effect or midline shift. There is no hydrocephalus. There are areas of decreased attenuation within the cerebral white matter, nonspecific and likely artifactual or related to chronic small vessel disease. There is a right maxillary sinus mucous retention cyst and there is bilateral ethmoid sinus mucosal thickening. There is fluid within the mastoid air cells. There may be a chronic left inferior orbital wall fracture. IMPRESSION: No acute intracranial findings. Electronically signed by: Tana Ortez MD (04/26/2019 11:57 AM) [facility]
[2019-04-26] MEDS ORDERED: IV NORMAL SALINE 1000ML BAG 1,000 ML IV ONE (12:15)
[2019-04-26] MEDS ORDERED: ONDANSETRON PF 4 MG/2 ML VIAL. IVP ONE (12:15)
[2019-04-26] MEDS ORDERED: cefTRIAXone IV Push 1 GM VIAL. IVP ONE (12:15)
[2019-04-26] MEDS ORDERED: MORPHINE SULFATE 4 MG/ML VIAL. IV ONE (12:15)
[2019-04-26 12:17] LABS: BASO # 0.1 x10^3/uL (0.0-0.2); BASO % 1 % (0-3); EOS # 0.3 x10^3/uL (0.0-0.7); EOS % 4 % (0-3); HEMATOCRIT 44.5 % (39.0-53.0); LYMPH # 1.3 x10^3/uL (1.0-4.8); LYMPH % 16 % (24-48); MEAN CORPUSCULAR HEMOGLOBIN 31 pg (25-35); MEAN CORPUSCULAR HGB CONC 34 g/dL (31-37); MEAN CORPUSCULAR VOLUME 92 fL (79-100); MONO # 0.5 x10^3/uL (0.0-1.1); MONO % 6 % (0-9); NEUT % 74 % (31-73); PLATELET COUNT 259 x10^3/uL (140-400); RED BLOOD COUNT 4.83 x10^6/uL (4.30-5.70); RED CELL DISTRIBUTION WIDTH 14.1 % (11.5-14.5); WHITE BLOOD COUNT 8.2 x10^3/uL (4.0-11.0)
[2019-04-26 12:28] LABS: CALCIUM 9.2 mg/dL (8.5-10.1); CREATININE 0.9 mg/dL (0.7-1.3); GFR 90.1; POTASSIUM 3.8 mmol/L (3.5-5.1)
[2019-04-26 12:38] LABS: ALBUMIN 3.4 g/dL (3.4-5.0); ALBUMIN/GLOBULIN RATIO 1.4 (1.0-1.7); TOTAL BILIRUBIN 0.6 mg/dL (0.2-1.0); TOTAL PROTEIN 5.9 g/dL (6.4-8.2)
[2019-04-26 13:00] VITALS: BP 152/83
--- NOTE | 2019-04-26 13:29 | PHYS DOC ---
Past Medical History Past Medical History: Bronchitis, High Cholesterol, Heart Disease, Hypertension, [place] Additional Past Medical Histor: internal hemorrhoids, chronic bronchitis, [place] Past Surgical History: Angioplasty Additional Past Surgical Histo: 1 Stent. Alcohol Use: None Drug Use: None Adult General Chief Complaint Chief Complaint: HEADACHE HPI HPI Patient is a 48 year old male presented to ER today for evaluation of severe headache started last night. Patient woke up this morning with more headache, did not get better with home Medications so he came here for evaluation. Patient also complaint of dental pain. She has history of chronic dental abscess and dental caries, he had been on antibiotics frequently, however he not on any antibiotic or any pain medication to last few weeks. he denies any fever, no neck pain. Patient denies any abdominal pain, no nausea vomiting. All other ROS is negative unless otherwise noted in HPI Review of Systems Review of Systems See above Current Medications Current Medications Current Medications Medications (Trade) Dose Ordered Sig/Sav Start Time Stop Time Status Last Admin Dose Admin Ceftriaxone Sodium (Rocephin) 2 gm 1X ONCE 04/26/19 12:15 04/26/19 12:16 DC 04/26/19 12:12 2 GM Morphine Sulfate (Morphine Sulfate) 4 mg 1X ONCE 04/26/19 12:15 04/26/19 12:16 DC 04/26/19 12:11 4 MG Ondansetron HCl (Zofran) 4 mg 1X ONCE 04/26/19 12:15 04/26/19 12:16 DC 04/26/19 12:11 4 MG Sodium Chloride 1,000 ml @ 1,000 mls/hr 1X ONCE 04/26/19 12:15 04/26/19 13:14 DC 04/26/19 12:10 1,000 MLS/HR Allergies Allergies Allergies Coded Allergies Type Severity Reaction Last Updated Verified No Known Drug Allergies 04/26/19 No Physical Exam Physical Exam See above Constitutional: Well developed, well nourished, no acute distress, non-toxic appearance. [] HENT: Normocephalic, atraumatic, bilateral external ears normal, oropharynx moist, no oral exudates, nose normal. Diffuse dental carries, dental decay, gingival swelling and erosion. Eyes: PERRLA, EOMI, conjunctiva normal, no discharge. [] Neck: Normal range of motion, no tenderness, supple, no stridor. [] Cardiovascular:Heart rate regular rhythm, no murmur [] Lungs & Thorax: Bilateral breath sounds clear to auscultation [] Abdomen: Bowel sounds normal, soft, no tenderness, no masses, no pulsatile masses. [] Skin: Warm, dry, no erythema, no rash. [] Back: No tenderness, no CVA tenderness. [] Extremities: No tenderness, no cyanosis, no clubbing, ROM intact, no edema. [] Neurologic: Alert and oriented X 3, normal motor function, normal sensory function, no focal deficits noted. [] Psychologic: Affect normal, judgement normal, mood normal. [] Current Patient Data Vital Signs Vital Signs Date Time Temp Pulse Resp B/P (MAP) Pulse Ox O2 Delivery O2 Flow Rate FiO2 04/26/19 13:00 69 18 98 04/26/19 11:32 97.9 141/96 (111) Room Air 97.9 Lab Values Laboratory Tests Test 04/26/19 12:05 White Blood Count 8.2 x10^3/uL (4.0-11.0) Red Blood Count 4.83 x10^6/uL (4.30-5.70) Hemoglobin 15.0 g/dL (13.0-17.5) Hematocrit 44.5 % (39.0-53.0) Mean Corpuscular Volume 92 fL (79-100) Mean Corpuscular Hemoglobin 31 pg (25-35) Mean Corpuscular Hemoglobin Concent 34 g/dL (31-37) Red Cell Distribution Width 14.1 % (11.5-14.5) Platelet Count 259 x10^3/uL (140-400) Neutrophils (%) (Auto) 74 % (31-73) H Lymphocytes (%) (Auto) 16 % (24-48) L Monocytes (%) (Auto) 6 % (0-9) Eosinophils (%) (Auto) 4 % (0-3) H Basophils (%) (Auto) 1 % (0-3) Neutrophils # (Auto) 6.0 x10^3/uL (1.8-7.7) Lymphocytes # (Auto) 1.3 x10^3/uL (1.0-4.8) Monocytes # (Auto) 0.5 x10^3/uL (0.0-1.1) Eosinophils # (Auto) 0.3 x10^3/uL (0.0-0.7) Basophils # (Auto) 0.1 x10^3/uL (0.0-0.2) Sodium Level 142 mmol/L (136-145) Potassium Level 3.8 mmol/L (3.5-5.1) Chloride Level 105 mmol/L (98-107) Carbon Dioxide Level 27 mmol/L (21-32) Anion Gap 10 (6-14) Blood Urea Nitrogen 5 mg/dL (8-26) L Creatinine 0.9 mg/dL (0.7-1.3) Estimated GFR (Cockcroft-Gault) 90.1 BUN/Creatinine Ratio 6 (6-20) Glucose Level 113 mg/dL (70-99) H Calcium Level 9.2 mg/dL (8.5-10.1) Total Bilirubin 0.6 mg/dL (0.2-1.0) Aspartate Amino Transferase (AST) 22 U/L (15-37) Alanine Aminotransferase (ALT) 19 U/L (16-63) Alkaline Phosphatase 67 U/L (46-116) Total Protein 5.9 g/dL (6.4-8.2) L Albumin 3.4 g/dL (3.4-5.0) Albumin/Globulin Ratio 1.4 (1.0-1.7) Laboratory Tests 04/26/19 12:05 Laboratory Tests 04/26/19 12:05 EKG EKG [] Radiology/Procedures Radiology/Procedures [][facility] [address] [place], [place] [id number] IMAGING REPORT Signed PATIENT: JIN VASQUEZ FACCOUNT: [id number] : 1970 LOCATION: ER AGE: 48 SEX: M EXAM STATUS: PRE ER ORD. PHYSICIAN: KARLA ARCE DO REASON: HEADACHE PROCEDURE: CT HEAD WO CONTRAST EXAM: Head CT without contrast. HISTORY: Headache. TECHNIQUE: Computed tomographic images of the head were obtained without contrast. *One or more of the following individualized dose reduction techniques were utilized for this examination: 1. Automated exposure control. 2. Adjustment of the mA and/or kV according to patient size. 3. Use of iterative reconstruction technique. COMPARISON: None. FINDINGS: There is no acute or subacute extra-axial or intraparenchymal hemorrhage. There is no mass effect or midline shift. There is no hydrocephalus. There are areas of decreased attenuation within the cerebral white matter, nonspecific and likely artifactual or related to chronic small vessel disease. There is a right maxillary sinus mucous retention cyst and there is bilateral ethmoid sinus mucosal thickening. There is fluid within the mastoid air cells. There may be a chronic left inferior orbital wall fracture. IMPRESSION: No acute intracranial findings. Electronically signed by: Tana Ortez MD (04/26/2019 11:57 AM) [facility] DICTATED and SIGNED BY: ATNA ORTEZ MD DATE: 04/26/19 3527 Course & Med Decision Making Course & Med Decision Making Pertinent Labs and Imaging studies reviewed. (See chart for details) [Patient was given medication in ER, he felt much better. Patient had negative CT scan his head, his lab works were normal.. Patient will be discharged home. need to follow with dentist for his dental problem. Dragon Disclaimer Dragon Disclaimer This electronic medical record was generated, in whole or in part, using a voice recognition dictation system. Departure Departure Impression: Primary Impression: Headache Additional Impression: Dental abscess Disposition: HOME, SELF-CARE Condition: IMPROVED Referrals: NON,STAFF (PCP) follow up with a dentist next week Patient Instructions: Dental Abscess, General Headache Without Cause Additional Instructions: Thank you for visiting our Emergency Department. We appreciate you trusting us with your care. If any additional problems come up don't hesitate [facility] Please follow up with your primary care provider so they can plan additional care if needed and know about the problem that you had. If symptoms worsen come back to the Emergency Department. Any concerning symptoms that start such as chest pain, shortness of air, weakness or numbness on one side of the body, running high fevers or any other concerning symptoms return to the ER. Scripts Naproxen Sodium (ANAPROX DS) 550 Mg Tablet 1 TAB PO BID for pain for 15 Days, #30 TAB 0 Refills Prov: KARLA ARCE DO 04/26/19 Amoxicillin (AMOXICILLIN) 500 Mg Capsule 500 MG PO TID for 10 Days, #30 CAP 0 Refills Prov: KARLA ARCE DO 04/26/19 Problem Qualifiers KARLA ARCE DO Apr 26, 2019 13:29
[2019-04-26] MEDS ORDERED: AMOX500C PO (13:49)
[2019-04-26] MEDS ORDERED: NAPR-682 PO (13:49)
== END 2019-04-26 13:52 | disposition home or self-care (01) ==
LOC: ER 11:22
DX: K02.9 Dental caries, unspecified (principal); R51 Headache; R60.9 Edema, unspecified; E78.00 Pure hypercholesterolemia, unspecified; I51.9 Heart disease, unspecified; I10 Essential (primary) hypertension; I25.2 Old myocardial infarction; J42 Unspecified chronic bronchitis; Z98.890 Other specified postprocedural states; Z79.899 Other long term (current) drug therapy
CPT/HCPCS: 36415; 70450; 80053; 85025; 96374; 96375; 99285; J0696; J2270; J2405; J7030

== ENCOUNTER 2019-09-05 11:51 | Emergency (ER) | payer SELFPAY ==
[~2019-09-05] VITALS: Ht 172.7 cm; Wt 99.0 kg
[~2019-09-05 11:51] MED LIST changes: +AMOX500C PO; +CLOT15CR23 TP; -CLOT15CR4 TP; +NAPR-682 PO
[2019-09-05 12:45] LABS: BASO # 0.1 x10^3/uL (0.0-0.2); BASO % 1 % (0-3); EOS # 0.1 x10^3/uL (0.0-0.7); EOS % 1 % (0-3); HEMATOCRIT 44.6 % (39.0-53.0); HEMOGLOBIN 15.5 g/dL (13.0-17.5); LYMPH # 1.3 x10^3/uL (1.0-4.8); LYMPH % 13 % (24-48); MEAN CORPUSCULAR HEMOGLOBIN 31 pg (25-35); MEAN CORPUSCULAR HGB CONC 35 g/dL (31-37); MEAN CORPUSCULAR VOLUME 90 fL (79-100); MONO # 0.5 x10^3/uL (0.0-1.1); MONO % 6 % (0-9); NEUT # 7.6 x10^3/uL (1.8-7.7); NEUT % 80 % (31-73); PLATELET COUNT 349 x10^3/uL (140-400); RED BLOOD COUNT 4.95 x10^6/uL (4.30-5.70); WHITE BLOOD COUNT 9.5 x10^3/uL (4.0-11.0)
[2019-09-05 12:57] LABS: FIBRINOGEN 420 mg/dL (200-440); PARTIAL THROMBOPLASTIN TIME 29 SEC (24-38)
[2019-09-05 12:58] LABS: PROTHROMBIN TIME PATIENT 12.9 SEC (11.7-14.0)
[2019-09-05 12:59] LABS: CALCIUM 9.1 mg/dL (8.5-10.1); CREATININE 0.9 mg/dL (0.7-1.3); GFR 89.7; POTASSIUM 4.1 mmol/L (3.5-5.1)
[2019-09-05 13:04] LABS: ALBUMIN 4.1 g/dL (3.4-5.0); ALBUMIN/GLOBULIN RATIO 1.2 (1.0-1.7); TOTAL BILIRUBIN 0.1 mg/dL (0.2-1.0); TOTAL PROTEIN 7.4 g/dL (6.4-8.2)
[2019-09-05 13:05] LABS: D-DIMER < 0.27 ug/mlFEU (0.00-0.50)
--- NOTE | 2019-09-05 13:34 | RAD ---
EXAM: PORTABLE CHEST 1V 09/05/2019 12:34 PM CLINICAL INDICATION:Bronchitis COMPARISON:Chest radiograph 10/27/2016 TECHNIQUE:AP upright view of the chest FINDINGS:The heart and mediastinum are normal. Lungs are well-expanded and clear. No pleural effusion or pneumothorax. No acute osseous abnormality. IMPRESSION:Normal chest radiograph. Electronically signed by: Lesa Prince MD (09/05/2019 1:31 PM) [id number]
--- NOTE | 2019-09-05 13:55 | EKG ---
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
[2019-09-05] MEDS ORDERED: AZIT250T PO (14:24)
--- NOTE | 2019-09-05 14:25 | PHYS DOC ---
Past Medical History Past Medical History: Bronchitis, High Cholesterol, Heart Disease, Hypertension, [place] Additional Past Medical Histor: internal hemorrhoids, chronic bronchitis, [place] Past Surgical History: Angioplasty Additional Past Surgical Histo: 1 Stent. Smoking Status: Current Every Day Smoker Alcohol Use: None Drug Use: None General Adult EDM: Chief Complaint: COUGH HPI: HPI: Patient is a 49 year old male presented to ER today for evaluation of nonproductive cough for several day, feeling hot and chilled, not feeling well for a week. Patient denies any headache, having some nausea and upset stomach. Patient is feeling very anxious, his mom was recently had a stroke. He denies being exposed to anybody who tested positive for COVID-19. Review of Systems: Review of Systems: Constitutional: Positive for fever or chills. [] Eyes: Denies change in visual acuity. [] HENT: Denies nasal congestion or sore throat. [] Respiratory: Positive for cough, no shortness of breath. [] Cardiovascular: Denies chest pain or edema. [] GI: Denies abdominal pain, nausea, vomiting, bloody stools or diarrhea. [] : Denies dysuria. [] Musculoskeletal: Denies back pain or joint pain. [] Integument: Denies rash. [] Neurologic: Denies headache, focal weakness or sensory changes. [] Endocrine: Denies polyuria or polydipsia. [] Lymphatic: Denies swollen glands. [] Psychiatric: Denies depression or anxiety. [] Heart Score: Risk Factors: Risk Factors: DM, Current or recent (<one month) smoker, HTN, HLP, family history of CAD, obesity. Risk Scores: Score 0 - 3: 2.5% MACE over next 6 weeks - Discharge Home Score 4 - 6: 20.3% MACE over next 6 weeks - Admit for Clinical Observation Score 7 - 10: 72.7% MACE over next 6 weeks - Early Invasive Strategies Allergies: Allergies: Allergies Coded Allergies Type Severity Reaction Last Updated Verified No Known Drug Allergies 04/26/19 No Physical Exam: PE: Constitutional: Well developed, well nourished, no acute distress, non-toxic appearance. [] HENT: Normocephalic, atraumatic, bilateral external ears normal, oropharynx moist, no oral exudates, nose normal. [] Eyes: PERRLA, EOMI, conjunctiva normal, no discharge. [] Neck: Normal range of motion, no tenderness, supple, no stridor. [] Cardiovascular:Heart rate regular rhythm, no murmur [] Lungs & Thorax: Bilateral breath sounds clear to auscultation [] Abdomen: Bowel sounds normal, soft, no tenderness, no masses, no pulsatile masses. [] Skin: Warm, dry, no erythema, no rash. [] Back: No tenderness, no CVA tenderness. [] Extremities: No tenderness, no cyanosis, no clubbing, ROM intact, no edema. [] Neurologic: Alert and oriented X 3, normal motor function, normal sensory function, no focal deficits noted. [] Psychologic: Affect normal, judgement normal, mood normal. [] Current Patient Data: Labs: Laboratory Tests Test 09/05/19 12:25 09/05/19 13:03 White Blood Count 9.5 x10^3/uL (4.0-11.0) Red Blood Count 4.95 x10^6/uL (4.30-5.70) Hemoglobin 15.5 g/dL (13.0-17.5) Hematocrit 44.6 % (39.0-53.0) Mean Corpuscular Volume 90 fL (79-100) Mean Corpuscular Hemoglobin 31 pg (25-35) Mean Corpuscular Hemoglobin Concent 35 g/dL (31-37) Red Cell Distribution Width 14.0 % (11.5-14.5) Platelet Count 349 x10^3/uL (140-400) Neutrophils (%) (Auto) 80 % (31-73) H Lymphocytes (%) (Auto) 13 % (24-48) L Monocytes (%) (Auto) 6 % (0-9) Eosinophils (%) (Auto) 1 % (0-3) Basophils (%) (Auto) 1 % (0-3) Neutrophils # (Auto) 7.6 x10^3/uL (1.8-7.7) Lymphocytes # (Auto) 1.3 x10^3/uL (1.0-4.8) Monocytes # (Auto) 0.5 x10^3/uL (0.0-1.1) Eosinophils # (Auto) 0.1 x10^3/uL (0.0-0.7) Basophils # (Auto) 0.1 x10^3/uL (0.0-0.2) Prothrombin Time 12.9 SEC (11.7-14.0) Prothrombin Time INR 1.0 (0.8-1.1) Activated Partial Thromboplast Time 29 SEC (24-38) Fibrinogen 420 mg/dL (200-440) D-Dimer (Gisselle) < 0.27 ug/mlFEU Sodium Level 138 mmol/L (136-145) Potassium Level 4.1 mmol/L (3.5-5.1) Chloride Level 103 mmol/L (98-107) Carbon Dioxide Level 21 mmol/L (21-32) Anion Gap 14 (6-14) Blood Urea Nitrogen 7 mg/dL (8-26) L Creatinine 0.9 mg/dL (0.7-1.3) Estimated GFR (Cockcroft-Gault) 89.7 BUN/Creatinine Ratio 8 (6-20) Glucose Level 108 mg/dL (70-99) H Calcium Level 9.1 mg/dL (8.5-10.1) Total Bilirubin 0.1 mg/dL (0.2-1.0) L Aspartate Amino Transferase (AST) 21 U/L (15-37) Alanine Aminotransferase (ALT) 27 U/L (16-63) Alkaline Phosphatase 84 U/L (46-116) Troponin I Quantitative < 0.017 ng/mL (0.000-0.055) Total Protein 7.4 g/dL (6.4-8.2) Albumin 4.1 g/dL (3.4-5.0) Albumin/Globulin Ratio 1.2 (1.0-1.7) Lactic Acid Level 0.7 mmol/L (0.4-2.0) Laboratory Tests 09/05/19 12:25 Laboratory Tests 09/05/19 12:25 Vital Signs: Vital Signs Date Time Temp Pulse Resp B/P (MAP) Pulse Ox O2 Delivery O2 Flow Rate FiO2 09/05/19 12:14 98.3 114 18 168/94 (118) 96 Room Air 98.3 EKG: EKG: [facility] [address] [place] [address] EKG REPORT Signed PATIENT: JIN VASQUEZ FACCOUNT: [id number] : 1970 LOCATION: ER AGE: 49 SEX: M EXAM PROCEDURE: 12 Lead EKG STATUS: DEP ER ORD. PHYSICIAN: KARLA ARCE DO REASON: [id number] [place] [address] Test Date: 2019-09-05 Test Time: 12:24:28 Pat Name: JIN VASQUEZ Department: Room: Gender: M Invoice Checker: : 1970 Requested By: KARLA ARCE Order Number: [id number] Reading MD: Jay Brooks Measurements Intervals [place] Rate: 85 P: 38 CO: 174 QRS: 63 QRSD: 94 T: 31 QT: 352 QTc: 419 Interpretive Statements SINUS RHYTHM Electronically Signed On 09-05-2019 16:50:34 CDT by Jay Brooks DICTATED and SIGNED BY: JAY BROOKS MD DATE: 09/05/19 1224 Radiology/Procedures: Radiology/Procedures: [][address] [address] IMAGING REPORT Signed PATIENT: JIN VASQUEZ FACCOUNT: [id number] : 1970 LOCATION: ER AGE: 49 SEX: M EXAM STATUS: REG ER ORD. PHYSICIAN: KARLA ARCE DO REASON: Cough, HX BRONCHITIS PROCEDURE: PORTABLE CHEST 1V EXAM: PORTABLE CHEST 1V 09/05/2019 12:34 PM CLINICAL INDICATION:Bronchitis COMPARISON:Chest radiograph 10/27/2016 TECHNIQUE:AP upright view of the chest FINDINGS:The heart and mediastinum are normal. Lungs are well-expanded and clear. No pleural effusion or pneumothorax. No acute osseous abnormality. IMPRESSION:Normal chest radiograph. Electronically signed by: Lesa Prince MD (09/05/2019 1:31 PM) [id number] DICTATED and SIGNED BY: LESA PRINCE MD DATE: 09/05/19 1331 Course & Med Decision Making: Course & Med Decision Making Pertinent Labs and Imaging studies reviewed. (See chart for details) A discussion was held with the patient regarding their current condition of bronchitis. The possible complications of bronchitis, including the development of pneumonia, emphysema, and cardiovascular disease were discussed. Possible causes of the patient's bronchitis were also discussed including viral illness and bacterial infection. [The patient will be treated with antibiotics.][ ]In addition to the specific therapy above, the patient is advised to avoid smoking, drink plenty of fluids, rest, and take aspirin or Tylenol for fever. Furthermore, the patient is advised to use a humidifier or steam in the bathroom. Dragon Disclaimer: Dragon Disclaimer: This electronic medical record was generated, in whole or in part, using a voice recognition dictation system. Departure Departure Impression: Primary Impression: Bronchitis Disposition: HOME, SELF-CARE Condition: IMPROVED Referrals: CATALINA ROACH MD (PCP) Patient Instructions: Acute Bronchitis Additional Instructions: Thank you for visiting our Emergency Department. We appreciate you trusting us with your care. If any additional problems come up don't hesitate to return to visit us. Please follow up with your primary care provider so they can plan additional care if needed and know about the problem that you had. If symptoms worsen come back to the Emergency Department. Any concerning symptoms that start such as chest pain, shortness of air, weakness or numbness on one side of the body, running high fevers or any other concerning symptoms return to the ER. Scripts Azithromycin (ZITHROMAX) 250 Mg Tablet 1 PKG PO UD, #6 TAB Prov: KARLA ARCE DO 09/05/19 Justicifation of Admission Dx: Justifications for Admission: Justification of Admission Dx: N/A KARLA ARCE DO Sep 05, 2019 14:25
[2019-09-05 14:36] VITALS: BP 147/73
== END 2019-09-05 14:35 | disposition home or self-care (01) ==
LOC: ER 11:51
DX: J42 Unspecified chronic bronchitis (principal); R11.0 Nausea; E78.00 Pure hypercholesterolemia, unspecified; I11.9 Hypertensive heart disease without heart failure; I25.2 Old myocardial infarction; F17.200 Nicotine dependence, unspecified, uncomplicated; Z98.890 Other specified postprocedural states
CPT/HCPCS: 71045; 80053; 83605; 84484; 85025; 85379; 85384; 85610; 85730; 87040; 93005; 99285; U0003; 36415

== ENCOUNTER 2020-03-14 06:02 | Emergency (ER) | payer SELFPAY ==
[~2020-03-14] VITALS: Ht 170.2 cm; Wt 72.7 kg
[~2020-03-14 06:02] MED LIST changes: +AZIT250T PO
--- NOTE | 2020-03-14 06:36 | PHYS DOC ---
Past Medical History Past Medical History: Bronchitis, High Cholesterol, Heart Disease, Hypert ension, [place] Additional Past Medical Histor: internal hemorrhoids, chronic bronchitis, [place] Past Surgical History: Angioplasty Additional Past Surgical Histo: 1 Stent. Smoking Status: Current Every Day Smoker Alcohol Use: None Drug Use: None General Adult EDM: Chief Complaint: NAUSEA/VOMITING/DIARRHA HPI: HPI: Patient is a 49 year old male who presents with chief complaint of nausea /vomiting. Patient gave plasma on Sunday and then yesterday began having nausea vomiting. Patient vomited 10-12 times. Patient describes currently 3 out of 10 lower abdominal sharp pain that is nonradiating. Patient denies any diarrhea but has had a bowel movement and 3 days. Patient denies fever but is had a cough and congestion with some chills. Patient has no known sick contacts. Symptoms are worse with eating Review of Systems: Review of Systems: Constitutional: Denies fever but has had chills Eyes: Denies change in visual acuity. [] HENT: Complains of congestion Respiratory: Denies cough or shortness of breath. [] Cardiovascular: Denies chest pain or edema. [] GI: Complains abdominal pain with nausea vomiting but no bloody stools or diarrhea. [] : Denies dysuria. [] Musculoskeletal: Denies back pain or joint pain. [] Integument: Denies rash. [] Neurologic: Denies headache, focal weakness or sensory changes. [] Endocrine: Denies polyuria or polydipsia. [] Lymphatic: Denies swollen glands. [] Psychiatric: Denies depression or anxiety. [] Heart Score: Risk Factors: Risk Factors: DM, Current or recent (<one month) smoker, HTN, HLP, family history of CAD, obesity. Risk Scores: Score 0 - 3: 2.5% MACE over next 6 weeks - Discharge Home Score 4 - 6: 20.3% MACE over next 6 weeks - Admit for Clinical Observation Score 7 - 10: 72.7% MACE over next 6 weeks - Early Invasive Strategies Allergies: Allergies: Allergies Coded Allergies Type Severity Reaction Last Updated Verified No Known Drug Allergies 04/26/19 No Physical Exam: PE: Constitutional: Well developed, well nourished, appears nauseous, had some active vomiting before room non-toxic appearance. [] HENT: Normocephalic, atraumatic, bilateral external ears normal, no trismus nose normal. [] Eyes: PERRLA, EOMI, conjunctiva normal, no discharge. [] Neck: Normal range of motion, no tenderness, supple, no stridor. [] Cardiovascular:Heart rate regular rhythm, peripheral pulse intact cap refill is brisk Lungs & Thorax: Bilateral breath sounds clear, no respiratory distress Abdomen: Soft with lower abdominal tenderness without guarding or rebound no masses, no pulsatile masses. [] Skin: Warm, dry, no erythema, no rash. [] Back: No tenderness, no CVA tenderness. [] Extremities: No tenderness, no cyanosis, no clubbing, ROM intact, no edema. [] Neurologic: Alert and oriented X 3, normal motor function, normal sensory function, no focal deficits noted. [] Psychologic: Affect normal, judgement normal, mood normal. [] Current Patient Data: Labs: Laboratory Tests Test 03/14/20 06:36 03/14/20 08:15 White Blood Count 8.8 x10^3/uL Red Blood Count 5.04 x10^6/uL Hemoglobin 15.5 g/dL Hematocrit 44.8 % Mean Corpuscular Volume 89 fL Mean Corpuscular Hemoglobin 31 pg Mean Corpuscular Hemoglobin Concent 35 g/dL Red Cell Distribution Width 14.7 % Platelet Count 275 x10^3/uL Neutrophils (%) (Auto) 69 % Lymphocytes (%) (Auto) 21 % Monocytes (%) (Auto) 7 % Eosinophils (%) (Auto) 2 % Basophils (%) (Auto) 1 % Neutrophils # (Auto) 6.1 x10^3/uL Lymphocytes # (Auto) 1.9 x10^3/uL Monocytes # (Auto) 0.6 x10^3/uL Eosinophils # (Auto) 0.1 x10^3/uL Basophils # (Auto) 0.1 x10^3/uL Sodium Level 138 mmol/L Potassium Level 3.4 mmol/L Chloride Level 102 mmol/L Carbon Dioxide Level 23 mmol/L Anion Gap 13 Blood Urea Nitrogen 9 mg/dL Creatinine 1.1 mg/dL Estimated GFR (Cockcroft-Gault) 71.1 BUN/Creatinine Ratio 8 Glucose Level 90 mg/dL Calcium Level 9.1 mg/dL Total Bilirubin 0.6 mg/dL Aspartate Amino Transf (AST/SGOT) 12 U/L Alanine Aminotransferase (ALT/SGPT) 20 U/L Alkaline Phosphatase 67 U/L Total Protein 6.6 g/dL Albumin 3.6 g/dL Albumin/Globulin Ratio 1.2 Lipase 84 U/L Urine Collection Type Unknown Urine Color Yellow Urine Clarity Clear Urine pH 6.0 Urine Specific [place] >=1.030 Urine Protein Negative mg/dL Urine Glucose (UA) Negative mg/dL Urine Ketones (Stick) Negative mg/dL Urine Blood Negative Urine Nitrite Negative Urine Bilirubin Negative Urine Urobilinogen Dipstick 0.2 mg/dL Urine Leukocyte Esterase Negative Urine RBC 0 /HPF Urine WBC 0 /HPF Urine Squamous Epithelial Cells Few /LPF Urine Bacteria 0 /HPF Current Medications Medications (Trade) Dose Ordered Sig/Sav Route PRN Reason Start Time Stop Time Status Last Admin Dose Admin Ondansetron HCl (Zofran) 4 mg 1X ONCE IVP 03/14/20 07:00 03/14/20 07:01 DC 03/14/20 06:46 Sodium Chloride 1,000 ml @ 1,000 mls/hr 1X ONCE IV 03/14/20 07:00 03/14/20 07:59 DC 03/14/20 06:42 Iohexol (Omnipaque 300 Mg/ml) 75 ml 1X ONCE IV 03/14/20 07:30 03/14/20 07:31 DC Info (CONTRAST GIVEN -- Rx MONITORING) 1 each PRN DAILY PRN MC SEE COMMENTS 03/14/20 07:00 03/16/20 06:59 Prochlorperazine Edisylate (Compazine) 10 mg STK-MED ONCE .ROUTE 03/14/20 07:50 03/14/20 07:50 DC Sodium Chloride 1,000 ml @ 1,000 mls/hr 1X ONCE IV 03/14/20 08:00 03/14/20 08:59 DC 03/14/20 08:02 Prochlorperazine Edisylate (Compazine) 10 mg 1X ONCE IV 03/14/20 08:00 03/14/20 08:01 DC 03/14/20 08:02 Lorazepam (Ativan Inj) 1 mg 1X ONCE IVP 03/14/20 08:30 03/14/20 08:32 DC 03/14/20 08:34 Vital Signs: Vital Signs Date Time Temp Pulse Resp B/P (MAP) Pulse Ox O2 Delivery O2 Flow Rate FiO2 03/14/20 07:57 64 20 144/85 (104) 98 Room Air 03/14/20 07:27 60 20 144/72 (96) 98 Room Air 03/14/20 06:05 98.4 78 20 136/92 (107) 98 Room Air 98.4 EKG: EKG: [] Radiology/Procedures: Radiology/Procedures: [][place] [address] IMAGING REPORT Signed PATIENT: JIN VASQUEZ FACCOUNT: [id number] : 1970 LOCATION: ER AGE: 49 SEX: M EXAM STATUS: REG ER ORD. PHYSICIAN: GLENIS AMANDA MD REASON: cough, abdominal pain x3 days PROCEDURE: PORTABLE CHEST 1V Single view chest dated 03/14/2020. Comparison made to 09/05/2019. CLINICAL INDICATION: Cough and abdominal pain for 3 days. FINDINGS: Single upright portable exam performed. Heart and mediastinal contours are stable. Lungs are clear. No consolidation or pleural effusion. No pneumothorax. IMPRESSION: No acute radiographic abnormality. Electronically signed by: Jarrod Barcenas MD (03/14/2020 7:00 AM) [facility] [place] DICTATED and SIGNED BY: JARROD BARCENAS MD DATE: 03/14/20 [id number] [place] [address] IMAGING REPORT Signed PATIENT: JIN VASQUEZ FACCOUNT: [id number] : 1970 LOCATION: ER AGE: 49 SEX: M EXAM STATUS: REG ER ORD. PHYSICIAN: GLENIS AMANDA MD REASON: abd pain, n/v (also a pui) PROCEDURE: CT ABD PELV W/ IV CONTRST ONLY CT scan abdomen and pelvis with contrast 03/14/2020 CLINICAL HISTORY: Abdominal pain. TECHNIQUE: After the intravenous administration of 85 cc of Omnipaque 300, contiguous, 5 mm axial sections were obtained through the abdomen and pelvis. One or more of the following individualized dose reduction techniques were utilized for this study: 1. Automated exposure control. 2. Adjustment of the mA and/or kV according to patient size. 3. Use of iterative reconstruction technique. FINDINGS: Comparison study is dated 11/29/2016. Images through the lung bases demonstrate minimal dependent subsegmental atelectasis bilaterally. The liver, spleen, pancreas, adrenal glands and kidneys are within normal limits. Atherosclerotic calcification of the abdominal aorta is seen. The abdominal aorta tapers normally. The gallbladder is well-distended. Air and stool are seen throughout the colon. There is no evidence of bowel obstruction. The appendix is well-visualized and is within normal limits. Images through the pelvis demonstrate the urinary bladder to be contracted. Calcifications are seen within the pelvis consistent with phleboliths. No free fluid is seen. Minimal S-shaped curvature of the thoracolumbar spine is seen. Degenerative changes are seen involving the lower thoracic and throughout the lumbar spine. IMPRESSION: No acute abnormality is seen. Electronically signed by: Adam Barrera MD (03/14/2020 7:52 AM) [id number] DICTATED and SIGNED BY: ADAM BARRERA MD DATE: 03/14/20 [id number] Course & Med Decision Making: Course & Med Decision Making Pertinent Labs and Imaging studies reviewed. (See chart for details) [] 49-year-old male presents with nausea vomiting with abdominal pain. Patient is also had some URI symptoms and chills. Patient underwent extensive work-up to rule out surgical pathology in abdomen, CT and blood work are all unremarkable. Chest x-ray is negative. Patient will be swabbed for COVID-19 and is told to isolate till results come back. Patient given Zofran and fluids initially and then was still nauseous and was given Compazine and another liter of fluids. After given Compazine patient had some akathisias which improved with administration of Ativan. On reassessment patient is resting comfortably with no active vomiting. Patient's abdominal pain is improved. Patient stable for discharge with outpatient follow-up and return precautions. Dragon Disclaimer: Dragon Disclaimer: This electronic medical record was generated, in whole or in part, using a voice recognition dictation system. Departure Departure Impression: Primary Impression: Nausea & vomiting Additional Impressions: Lower abdominal pain Suspected COVID-19 virus infection Disposition: 01 DC HOME SELF CARE/HOMELESS Condition: STABLE Referrals: CATALINA ROACH MD (PCP) 2-3 days Patient Instructions: Nausea and Vomiting Additional Instructions: You have been tested for or diagnosed with COVID-19. It is an infection caused by a new type of coronavirus. COVID-19 will cause cold-like or mild flu symptoms in most. It can cause more severe symptoms like problems breathing in some. There is no treatment for COVID-19. The body will clear the infection over time. Self-care will help to ease discomfort. Steps to Take: Self-Care Rest as needed. Healthy habits may help you feel better. Steps include: Choose healthy foods including fruits and vegetables. Drink water throughout the day. Get plenty of sleep each night. If you smoke, try to quit. It may ease breathing. Avoid alcohol. Keep Others Healthy The virus can spread to others. Droplets are released every time you sneeze or cough. The droplets can get into the mouth, nose, or eyes of people near you and lead to infection. To lower the chances of spreading COVID-19 to others: Stay at home until your doctor has said it is safe to leave. If you tested positive this will mean staying isolated until both of the following are true: At least 7 days have passed since the start of illness. You are free of fever for at least 72 hours without the use of medicine. During this time: - Avoid public areas, events, or transportation. Do not return to work or school until your doctor has said it is safe to do so. - Call ahead if you need to go to a medical center. Let them know you may have COVID-19. It will help them guide you where to go. They may also ask you to wear a facemask when you come to the office. - If you call for emergency medical services, let them know you may have COVID- 19. While at home: - Try to avoid close contact with others. Stay about 6 feet away. - If possible, spend most of your time in a separate room from others. - Use a face mask if you will be in close contact with others such as sharing a room or vehicle. - Have someone wipe down common surfaces in the home. Use household aerial sprayer every day on areas like doorknobs, counters, or sinks. - Cough or sneeze into a tissue. Throw the tissue away right after use. If a tissue is not available, cough or sneeze into your elbow. - Wash your hands often. Wash them after sneezing or coughing. Use soap and water and wash for at least 20 seconds. Alcohol based hand vat cleaner can be used if soap and water is not available. - Do not prepare food for others. Avoid sharing personal items like forks, spoons, or toothbrushes. - Avoid close contact with pets while you are sick. There is no evidence of the virus passing to pets. This is a safety step until more is known about this virus. Isolation can be frustrating. Social interaction can help. Keep in touch with friends and family through phone and tech options. You can still interact with others in your home, just keep a safe distance of about 6 feet. Follow-up: Your doctors office will check in with you to see if there are any changes in your health. You may be asked to keep track of symptoms to share with them. They will also let you know when you are clear to be in public again. Problems to Look Out For: Contact your doctor if your recovery is not going as you expect. Get emergency care if you have problems such as: - Trouble breathing - Nonstop chest pain or pressure - Changes in awareness, confusion, or problems waking - Lips or face have bluish color - Worsening of symptoms If you think you have an emergency, call for emergency medical services right away. As taken from [facility] EMERGENCY DEPARTMENT GENERAL DISCHARGE INSTRUCTIONS THANK YOU for coming to [facility] Emergency Department (ED) today and trusting us with your care. We trust that you had a positive experience in our Emergency Department. If you wish to speak to the department Management you can contact the delivery department supervisor at . YOUR FOLLOW UP INSTRUCTIONS ARE FOLLOWS: Do you have a private doctor? If you do not have a private doctor, please ask for a resource list of physicians or clinics that may be able to assist you with follow up care. The Emergency Physician has interpreted your x-rays. The X-ray specialist will also review them. If there is a change in the findings you will be notified in 48 hours when at all possible. A lab test or lab culture may have been done, your results will be reviewed and you will be notified if you need a change in treatment. ADDITIONAL INSTRUCTIONS AND INFORMATION Your care today has been supervised by a physician who is specially trained in emergency care. Many problems require more than one evaluation for a complete diagnosis and treatment. We recommend that you schedule your follow up appointment as recommended to ensure complete treatment of your illness or injury. If you are unable to obtain follow up care and continue to have a problem, or if your condition worsens we recommend that you return to the ED. We are not able to safely determine your condition over the phone nor are we able to give sound medical advice over the phone. For these safety reasons, if you call for medical advice we will ask you to come to the ED for further evaluation If you have any questions regarding these discharge instructions please call the ED at . SAFETY INFORMATION In the interest of safety, wellness, and injury prevention; we encourage you to wear your seatbelt, if you smoke; quit smoking, and we encourage your family to use protective helmet for bicycling and other sporting events that present an increased risk for head injury. IF YOUR SYMPTOMS WORSEN OR NEW SYMPTOMS DEVELOP, OR YOU HAVE CONCERNS ABOUT YOUR CONDITION; OR IF YOUR CONDITION WORSENS WHILE YOU ARE WAITING FOR YOUR FOLLOW UP APPOINTMENT; EITHER CONTACT YOUR PRIMARY CARE DOCTOR, THE PHYSICIAN WHOSE NAME AND NUMBER YOU WERE GIVEN, OR RETURN TO THE ED IMMEDIATELY. You had an adverse reaction to Compazine today and should not take it in the future. Scripts Hyoscyamine Sulfate (LEVSIN-SL) 0.125 Mg Tab.subl 0.125 MG SL Q6HRS for abd pain, #15 TAB Prov: GLENIS AMANDA MD 03/14/20 Ondansetron Hcl (ZOFRAN) 4 Mg Tablet 1 TAB PO Q6HRS for nausea, #12 TAB Prov: GLENIS AMANDA MD 03/14/20 GLENIS AMANDA MD Mar 14, 2020 06:36
[2020-03-14 06:50] LABS: BASO # 0.1 x10^3/uL (0.0-0.2); BASO % 1 % (0-3); EOS # 0.1 x10^3/uL (0.0-0.7); EOS % 2 % (0-3); HEMATOCRIT 44.8 % (39.0-53.0); HEMOGLOBIN 15.5 g/dL (13.0-17.5); LYMPH # 1.9 x10^3/uL (1.0-4.8); LYMPH % 21 % (24-48); MEAN CORPUSCULAR HEMOGLOBIN 31 pg (25-35); MEAN CORPUSCULAR HGB CONC 35 g/dL (31-37); MEAN CORPUSCULAR VOLUME 89 fL (79-100); MONO # 0.6 x10^3/uL (0.0-1.1); MONO % 7 % (0-9); NEUT # 6.1 x10^3/uL (1.8-7.7); NEUT % 69 % (31-73); PLATELET COUNT 275 x10^3/uL (140-400); RED BLOOD COUNT 5.04 x10^6/uL (4.30-5.70); RED CELL DISTRIBUTION WIDTH 14.7 % (11.5-14.5); WHITE BLOOD COUNT 8.8 x10^3/uL (4.0-11.0)
[2020-03-14] MEDS ORDERED: CONTRAST GIVEN. MC PRN (07:00)
[2020-03-14] MEDS ORDERED: IV NORMAL SALINE 1000ML BAG 1,000 ML IV ONE ×2 (07:00→08:00)
[2020-03-14] MEDS ORDERED: ONDANSETRON PF 4 MG/2 ML VIAL. IVP ONE (07:00)
--- NOTE | 2020-03-14 07:02 | RAD ---
Single view chest dated 03/14/2020. Comparison made to 09/05/2019. CLINICAL INDICATION: Cough and abdominal pain for 3 days. FINDINGS: Single upright portable exam performed. Heart and mediastinal contours are stable. Lungs are clear. N o consolidation or pleural effusion. No pneumothorax. IMPRESSION: No acute radiographic abnormality. Electronically signed by: Jarrod Barcenas MD (03/14/2020 7:00 AM) [facility]
[2020-03-14 07:09] LABS: CALCIUM 9.1 mg/dL (8.5-10.1); CREATININE 1.1 mg/dL (0.7-1.3); GFR 71.1; POTASSIUM 3.4 mmol/L (3.5-5.1)
[2020-03-14 07:14] LABS: ALBUMIN 3.6 g/dL (3.4-5.0); ALBUMIN/GLOBULIN RATIO 1.2 (1.0-1.7); TOTAL BILIRUBIN 0.6 mg/dL (0.2-1.0); TOTAL PROTEIN 6.6 g/dL (6.4-8.2)
[2020-03-14] MEDS ORDERED: IOHEXOL 300 MG/ML 100ML VIAL. IV ONE (07:30)
[2020-03-14] MEDS ORDERED: PROCHLORPERAZINE 10 MG/2 ML VIAL. ONE (07:50)
--- NOTE | 2020-03-14 07:55 | RAD ---
CT scan abdomen and pelvis with contrast 03/14/2020 CLINICAL HISTORY: Abdominal pain. TECHNIQUE: After the intravenous administration of 85 cc of Omnipaque 300, contiguous, 5 mm axial sec tions were obtained through the abdomen and pelvis. One or more of the following individualized dose reduction techniques were utilized for this study: 1. Automated exposure control. 2. Adjustment of the mA and/or kV according to patient size. 3. Use of iterative reconstruction technique. FINDINGS: Comparison study is dated 11/29/2016. Images through the lung bases demonstrate minimal dependent subsegmental atelectasis bilaterally. The liver, spleen, pancreas, adrenal glands and kidneys are within normal limits. Atherosclerotic calcification of the abdominal aorta is seen. The abdominal aorta tapers normally. Th e gallbladder is well-distended. Air and stool are seen throughout the colon. There is no evidence of bowel obstruction. The appendix is well-visualized and is within normal limits. Images through the pelvis demonstrate the urinary bladder to be contracted. Calcifications are seen w ithin the pelvis consistent with phleboliths. No free fluid is seen. Minimal S-shaped curvature of th e thoracolumbar spine is seen. Degenerative changes are seen involving the lower thoracic and through out the lumbar spine. IMPRESSION: No acute abnormality is seen. Electronically signed by: Adam Barrera MD (03/14/2020 7:52 AM) [id number]
[2020-03-14] MEDS ORDERED: PROCHLORPERAZINE 10 MG/2 ML VIAL. IV ONE (08:00)
[2020-03-14 08:32] LABS: BILIRUBIN,URINE NEGATIVE (NEG); CLARITY,URINE CLEAR; COLOR,URINE YELLOW; NITRITE,URINE NEGATIVE (NEG); PROTEIN,URINE NEGATIVE (NEG-TRACE); UROBILINOGEN,URINE 0.2 mg/dL (0.2 mg/dL)
[2020-03-14 08:56] LABS: BACTERIA,URINE 0 /HPF (0-FEW); RBC,URINE 0 /HPF (0-2); WBC,URINE 0 /HPF (0-4)
[2020-03-14] MEDS ORDERED: HYOS0.1265 SL (09:32)
[2020-03-14] MEDS ORDERED: ONDA4TAB7 PO (09:32)
[2020-03-14 09:57] VITALS: BP 142/66
--- NOTE | 2020-03-16 11:01 | NUR ---
IP: Informed pt of negative COVID results. Pt verbalized understanding.
== END 2020-03-14 10:05 | disposition home or self-care (01) ==
LOC: ER 06:02
DX: R11.2 Nausea with vomiting, unspecified (principal); R10.30 Lower abdominal pain, unspecified; Z20.828 Contact with and (suspected) exposure to other viral communicable diseases; I11.9 Hypertensive heart disease without heart failure; E78.00 Pure hypercholesterolemia, unspecified; I25.2 Old myocardial infarction; F17.200 Nicotine dependence, unspecified, uncomplicated; Z95.5 Presence of coronary angioplasty implant and graft
CPT/HCPCS: 36415; 71045; 74177; 80053; 81001; 83690; 85025; 96361; 96374; 96375; 99285; C9803; J0780; J2060; J2405; J7030; Q9967; U0003